=== PATIENT | female | born 1955 | race Caucasian/White ===

== ENCOUNTER → 2018-01-19 12:17 | Outpatient (CLI) | payer OTHER, SELFPAY ==
[2018-01-19 13:17] LABS: Appearance Urine UA CLEAR; Bilirubin Urine UA NEGATIVE (NEGATIVE); Color Urine UA YELLOW; Glucose Urine UA NEGATIVE (Normal); Ketones Urine UA NEGATIVE (NEGATIVE); Leukocyte Esterase Urine UA NEGATIVE (NEGATIVE); Nitrite Urine UA Negative (Negative); Occult Blood Urine UA 2+ (Negative); Protein Urine UA NEGATIVE (Negative); Specific Gravity Urine UA <=1.005 (1.000-1.035); Urobilinogen Urine UA 0.2 E.U./dL (0.2)
[2018-01-19 13:37] LABS: WBC Urine 0-1/HPF (0-5/HPF)
[2018-01-19 13:41] LABS: Bacteria Urine Few (2-10); Culture Indicated Urine Cult Not Indicated; RBC Urine None Seen (0-5/HPF)
== END ==
PROVIDERS: Family Provider Family Medicine; PCP Family Medicine; Visit Provider Internal Medicine
DX: R30.0 Dysuria (principal)
CPT/HCPCS: 81003; 81015

== ENCOUNTER → 2018-04-07 11:52 | Outpatient (CLI) | payer OTHER, SELFPAY ==
--- NOTE | 2018-04-07 11:53 | DI.MG.S_ITS ---
BILATERAL DIGITAL SCREENING MAMMOGRAM 3D/2D WITH CAD: 04/07/2018 CLINICAL: Routine screening. Family history of breast cancer. Comparison is made to exams dated: 12/09/2016 mammogram, 12/09/2015 mammogram, and 11/28/2014 mammogram - [facility]. The tissue of both breasts is heterogeneously dense. This may lower the sensitivity of mammography. Current study was also evaluated with a Computer Aided Detection (CAD) system. No significant masses, calcifications, or other findings are seen in either breast. There has been no significant interval change. IMPRESSION: NEGATIVE There is no mammographic evidence of malignancy. A 1 year screening mammogram is recommended. This exam was interpreted at Station ID: [id number]. NOTE: For mammograms, a report in lay terms will be sent to the patient. Approximately 15% of breast malignancies will not be visualized mammographically. In the management of a palpable breast mass, a negative mammogram must not discourage biopsy of a clinically suspicious lesion. Electronically Signed By: Vale verde/sebastian:04/07/2018 13:41:00 copy to: Kamilah Parnell letter sent: Normal Exam ACR BI-RADS Category 1: Negative 3341F
== END ==
PROVIDERS: Family Provider Family Medicine; PCP Family Medicine; Visit Provider Internal Medicine
DX: Z12.31 Encounter for screening mammogram for malignant neoplasm of breast (principal); Z80.3 Family history of malignant neoplasm of breast
CPT/HCPCS: 77063; 77067

== ENCOUNTER 2018-06-01 12:43 | Day surgery (SDC) | payer OTHER, SELFPAY ==
[2018-06-01 13:30] VITALS: BMI 23.0
[2018-06-01 13:37] VITALS: BP 126/89; PULSE 86; RESP 16; TEMP 36.7; O2SAT 99
[2018-06-01] MEDS: SODIUM CHLORIDE 0.9% 1,000 ML 21 ML IV (13:50)
--- NOTE | 2018-06-01 14:35 | PM.HP.1 ---
History of Present Illness Date Patient Seen: 06/01/18 Time Patient Seen: 14:35 Chief complaint: colonoscopy [id number] Narrative: 63-year-old female who presents for colorectal screening. Her last colonoscopy was 10 years ago, which she reported as normal at that time. She has had no new recent gastrointestinal symptoms. Denies nausea, vomiting, abdominal pain, loss of appetite, unexplained weight loss, change in bowel habits, diarrhea, constipation, melena, hematochezia, or bright red blood per rectum. Patient History Medical History History of hysterectomy (Acute) Hyperlipidemia (Chronic 2013) Hypothyroidism (Chronic 2013) Surgical History History of section (Acute) History of colonoscopy (Acute) History of hemorrhoidectomy (Acute) History of myomectomy (Acute) History of tonsillectomy (Acute) History of abdominoplasty (Resolved) History of section (Resolved) Family & Social History Family History: Reviewed 06/01/18 by Martín Vasquez MD Social History: household members spouse Tobacco & Substance use: Smoking Status Never smoker Meds Home Medications Medication Instructions Recorded Confirmed Type levothyroxine 100 mcg tablet 100 mcg PO QAM #90 tab 11/23/17 06/01/18 Rx atorvastatin 40 mg tablet 40 mg PO HS #90 tab 12/06/17 06/01/18 Rx CMP testosterone See Label Instructions .ROUTE 01/24/18 06/01/18 Rx .COMPLEX #30 gram cholecalciferol (vitamin D3) 5,000 unit PO DAILY 06/01/18 06/01/18 History [Vitamin D3] coenzyme Q10 [CoQ-10] 60 mg PO DAILY 06/01/18 06/01/18 History estradiol [Yuvafem] 10 mcg VAGINAL 2XW 06/01/18 06/01/18 History multivitamin 1 cap PO QAM 06/01/18 06/01/18 History spironolactone 50 mg PO BID 06/01/18 06/01/18 History turmeric 3,000 mg PO DAILY 06/01/18 06/01/18 History Allergies Allergy/AdvReac Type Severity Reaction Status Date / Time codeine [CODEINE] Allergy Severe SEVERE Verified 06/01/18 13:22 NAUSEA morphine [MORPHINE] Allergy Severe NAUSEA/VOMI Verified 06/01/18 13:22 TING oxycodone [OXYCODONE] Allergy Severe NAUSEA Verified 06/01/18 13:22 Review of Systems Review of Systems All systems reviewed & are unremarkable except as noted in HPI and below Exam Vital Signs (past 8 hours): - 06/01/18 13:37 Temperature 98.1 F Pulse Rate 86 Respiratory Rate 16 Blood Pressure 126/89 Pulse Oximetry 99 Oxygen Delivery Method Room Air Narrative Exam Narrative: Well-nourished well-developed female lying comfortably in bed in no acute distress. Alert oriented x3. Her accompanies her at the bedside throughout my entire visit Sclera nonicteric Regular rate and rhythm Abdomen soft, nondistended, nontender Extremities show no clubbing, cyanosis, or edema Objective Labs Labs: No recent laboratory or radiographic studies review Assessment & Plan Plan: Assessment/Plan Narrative: 63-year-old female requiring colorectal screening since it has been 10 years from her last examination. Colonoscopy is currently recommended. Technical details of the procedure were discussed. Risks, benefits, alternatives were explained. Risks including but not limited to sedation, aspiration, bleeding, pain, missed lesion, incomplete examination, need for further radiographic studies, colonic perforation, need for major abdominal surgery, and all attendant risks of major surgery were explained in detail. Questions were answered to her satisfaction, and she voiced understanding. Consent was placed on the chart. We will proceed as above.
--- NOTE | 2018-06-01 14:39 | PM.PREOP ---
Pre-operative Note Interval Note Pre-op Check: Yes History & Physical Reviewed by Physician, Yes Exam Performed and Yes History & Physical exam performed today by Physician Changes: No H&P completed within 30 days and has changed as indicated here:: Patient seen and examined today. History and physical examination documented and placed on the chart. Proceed with colonoscopy today as planned. ASA Class (for procedural sedation): II
[2018-06-01] MEDS: ONDANSETRON 4 MG/2 ML INJ IV (14:47)
[2018-06-01] MEDS: diphenhydrAMINE 50 MG/ML VIAL IV (15:00)
[2018-06-01] MEDS: MIDAZOLAM 5 MG/5 ML VIAL IV (15:09)
[2018-06-01] MEDS: fentaNYL 250 MCG/5 ML INJ IV (15:11)
--- NOTE | 2018-06-01 15:13 | PM.OP.ENDO ---
Operative Date/Time/Diagnoses Date of procedure: 06/01/18 Time of procedure: 15:13 Pre-op diagnosis: Colorectal screening Post-op diagnosis: other (Normal colon and rectum) Procedure & Clinicians Study performed: 1. Sedation per surgeon 2. Colonoscopy Same procedure as scheduled: Yes Indications: 63-year-old female who presents for colorectal screening. Her last examination was 10 years ago. Colonoscopy is once again recommended. Surgeon: Martín Vasquez Procedure Notes SCOAP/Timeout: Yes Procedure in detail: After obtaining informed consent, the patient was brought to the GI suite and placed in the left lateral decubitus position on the examination table. After placement of appropriate monitors, the patient was given incremental doses of Versed and Fentanyl until an appropriate level of sedation was achieved. A time out was held per SCOAP protocol. A digital rectal examination was performed and did not reveal any masses or obstructing lesions. The colonoscope was gently passed into the patient's anus and the entire colon navigated to the level of the cecum with some difficulty. In fact, the adult colonoscope was inadequate to navigate the tortuous left colon so pediatric colonoscope was used for the exam. Terminal ileum was intubated and noted to be grossly normal. Once in the cecum, the scope was withdrawn being sure to go before and beyond all mucosal folds and prominences and get an excellent examination. The findings are noted above. At the level of the rectal vault, the scope was retroflexed and the internal anal canal was examined. The scope was straightened and air aspirated from the colon. The instrument was removed from the patient's body and the procedure was concluded. The patient was allowed to awaken from sedation without difficulty and taken to the post-anesthesia care unit in good condition. Scope withdrawal time: 8:02 min Sedation minutes: 27 Findings: other findings (Normal colon and rectum) Specimen(s): none sent Complications: none Recommendations: Colonscopy in 10 years and High fiber diet Plan for aftercare: 1. Discharge home Follow up: as needed Disposition: PACU
[2018-06-01 15:24] VITALS: BP 134/92; PULSE 91; RESP 14; TEMP 37.2; O2SAT 98
[2018-06-01 15:31] VITALS: BP 137/85; PULSE 84; RESP 15; O2SAT 98
[2018-06-01 15:36] VITALS: BP 113/82; PULSE 94; RESP 15; O2SAT 98
[2018-06-01 15:42] VITALS: BP 118/75; PULSE 73; RESP 15; TEMP 37.2; O2SAT 98
== END 2018-06-01 16:18 | disposition home or self-care (01) ==
PROVIDERS: PCP Obstetrics & Gynecology; Visit Provider Surgery
PROC: 0DJD8ZZ Inspection of Lower Intestinal Tract, Via Natural or Artificial Opening Endoscopic (ICD-10-PCS; CPT 45378; principal; 2018-06-01 14:45)
DX: Z12.11 Encounter for screening for malignant neoplasm of colon (principal)
CPT/HCPCS: 45378; 99152; 99153; J1200; J2250; J2405; J3010

== ENCOUNTER → 2018-07-04 13:21 | Outpatient (CLI) | payer OTHER, SELFPAY ==
[2018-07-06 15:41] LABS: Estradiol < 15 pg/mL; Progesterone < 0.5 ng/mL
[2018-07-07 15:16] LABS: Dehydroepiandrosterone Sulfate 57 mcg/dL (12-133)
[2018-07-07 17:41] LABS: Testosterone Free 1.7 pg/mL (0.1-6.4); Testosterone Total 14 ng/dL (2-45)
== END ==
PROVIDERS: PCP Obstetrics & Gynecology; Visit Provider Obstetrics & Gynecology
DX: N95.1 Menopausal and female climacteric states (principal)
CPT/HCPCS: 36415; 82627; 82670; 84144; 84402; 84403

== ENCOUNTER → 2019-03-02 11:43 | Outpatient (CLI) | payer OTHER, SELFPAY ==
[2019-03-02 12:09] LABS: Hematocrit 40.9 % (36-46); Hemoglobin 14.3 g/dL (12.0-16.0); Mean Corpuscular Hemoglobin 35.8 PG (26-34); Mean Corpuscular Volume 102.5 fL (80-100); Platelet Count 146 X10^3/uL (150-400); Red Blood Cell Count 3.99 X10^6/uL (4.0-5.2); Red Cell Distribution Width 13.7 % (11.6-14.8); White Blood Cell Count 3.6 X10^3/uL (4.5-11.0)
[2019-03-02 12:24] LABS: Alanine Aminotransferase 53 IU/L (9-52); Albumin 4.5 g/dL (3.5-5.0); Albumin Globulin Ratio 1.5 (1.0-2.8); Alkaline Phosphatase 70 U/L (38-126); Aspartate Aminotransferase 63 IU/L (14-36); Bilirubin Total 1.2 mg/dL (0.2-1.3); Blood Urea Nitrogen 10 mg/dL (7-17); Calcium 9.4 mg/dL (8.4-10.2); Carbon Dioxide 28 mmol/L (22-32); Chloride 97 mmol/L (98-107); Cholesterol 227 mg/dL (140-199); Estimated Glomerular Filt Rate > 60.0 mL/min (>60); Globulin 3.1 g/dL (1.7-4.1); Glucose 104 mg/dL (80-110); HDL Cholesterol 83 mg/dL (40-60); HEMOLYSIS < 15 (0-50); LDL Cholesterol Calculated 106 mg/dL (<100); Potassium 4.6 mmol/L (3.4-5.1); Sodium 135 mmol/L (137-145); Total Protein 7.6 g/dL (6.3-8.2); Triglycerides 189 mg/dL (35-150)
[2019-03-02 12:27] LABS: Neutrophils Absolute Manual 2520 /uL (3000-5900); Total Cells Counted 100
[2019-03-02 12:29] LABS: Macrocytosis 1+
[2019-03-02 17:54] LABS: Free T4, Direct Thyroxine 1.07 ng/dL (0.78-2.19)
== END ==
PROVIDERS: PCP Nurse Practitioner; Visit Provider Nurse Practitioner
DX: E78.5 Hyperlipidemia, unspecified (principal); D69.6 Thrombocytopenia, unspecified; E03.9 Hypothyroidism, unspecified
CPT/HCPCS: 36415; 80053; 80061; 84439; 84443; 85025

== ENCOUNTER → 2019-04-18 16:02 | Outpatient (CLI) | payer OTHER, SELFPAY ==
--- NOTE | 2019-04-18 | DI.MG.S_ITS ---
BILATERAL DIGITAL SCREENING MAMMOGRAM 3D/2D WITH CAD: 04/18/2019 CLINICAL: Routine screening. Comparison is made to exams dated: 04/07/2018 mammogram, 12/09/2016 mammogram, 12/09/2015 mammogram, and 11/28/2014 mammogram - [facility]. The tissue of both breasts is heterogeneously dense. This may lower the sensitivity of mammography. Current study was also evaluated with a Computer Aided Detection (CAD) system. No significant masses, calcifications, or other findings are seen in either breast. There has been no significant interval change. IMPRESSION: NEGATIVE There is no mammographic evidence of malignancy. A 1 year screening mammogram is recommended. This exam was interpreted at Station ID: [id number]. NOTE: For mammograms, a report in lay terms will be sent to the patient. Approximately 15% of breast malignancies will not be visualized mammographically. In the management of a palpable breast mass, a negative mammogram must not discourage biopsy of a clinically suspicious lesion. Electronically Signed By: Dc herrera/sebastian:04/18/2019 18:16:34 copy to: Kamilah Parnell letter sent: Normal Exam ACR BI-RADS Category 1: Negative 3341F
== END ==
PROVIDERS: PCP Nurse Practitioner; Visit Provider Obstetrics & Gynecology
DX: Z12.31 Encounter for screening mammogram for malignant neoplasm of breast (principal)
CPT/HCPCS: 77063; 77067

== ENCOUNTER → 2019-07-16 07:20 | Outpatient (CLI) | payer OTHER, SELFPAY ==
[2019-07-16 09:17] LABS: Alanine Aminotransferase 20 IU/L (<35); Albumin 4.4 g/dL (3.5-5.0); Albumin Globulin Ratio 1.6 (1.0-2.8); Alkaline Phosphatase 81 U/L (38-126); Aspartate Aminotransferase 32 IU/L (14-36); Bilirubin Unconjugated 0.8 mg/dL (0.0-1.1); Globulin 2.7 g/dL (1.7-4.1); HEMOLYSIS < 15 (0-50); Total Protein 7.1 g/dL (6.3-8.2)
[2019-07-16 09:50] LABS: Thyroid Stimulating Hormone 0.52 uIU/mL (0.47-4.68)
[2019-07-16 15:51] LABS: Hep C Virus Ab w/Reflex Quant NEGATIVE s/c (NEGATIVE)
== END ==
PROVIDERS: PCP Nurse Practitioner; Visit Provider Nurse Practitioner
DX: R74.8 Abnormal levels of other serum enzymes (principal); Z11.59 Encounter for screening for other viral diseases; E03.9 Hypothyroidism, unspecified; E78.5 Hyperlipidemia, unspecified; I10 Essential (primary) hypertension
CPT/HCPCS: 36415; 80076; 84443; 86803

== ENCOUNTER → 2020-04-19 14:16 | Outpatient (CLI) | payer MEDICARE, SELFPAY ==
--- NOTE | 2020-04-19 | DI.MG.S_ITS ---
BILATERAL DIGITAL SCREENING MAMMOGRAM 3D/2D WITH CAD: 04/19/2020 CLINICAL: Routine screening. Family history of breast cancer. Comparison is made to exams dated: 04/18/2019 mammogram, 04/07/2018 mammogram, and 12/09/2016 mammogram - [facility]. There are scattered fibroglandular elements in both breasts. Current study was also evaluated with a Computer Aided Detection (CAD) system. No significant masses, calcifications, or other findings are seen in either breast. There has been no significant interval change. IMPRESSION: NEGATIVE There is no mammographic evidence of malignancy. A 1 year screening mammogram is recommended. This exam was interpreted at Station ID: [id number]. NOTE: For mammograms, a report in lay terms will be sent to the patient. Approximately 15% of breast malignancies will not be visualized mammographically. In the management of a palpable breast mass, a negative mammogram must not discourage biopsy of a clinically suspicious lesion. Electronically Signed By: Abdon jones/sebastian:04/21/2020 09:50:01 copy to: Kamilah Parnell letter sent: Normal Exam ACR BI-RADS Category 1: Negative 3341F
== END ==
PROVIDERS: PCP Nurse Practitioner; Referring Provider Obstetrics & Gynecology; Visit Provider Obstetrics & Gynecology
DX: Z12.31 Encounter for screening mammogram for malignant neoplasm of breast (principal); Z80.3 Family history of malignant neoplasm of breast
CPT/HCPCS: 77063; 77067

== ENCOUNTER → 2020-11-06 08:45 | Outpatient (CLI) | payer MEDICARE, SELFPAY ==
[2020-11-06 09:25] LABS: Alanine Aminotransferase 21 IU/L (<35); Albumin 4.4 g/dL (3.5-5.0); Albumin Globulin Ratio 1.5 (1.0-2.8); Alkaline Phosphatase 85 U/L (38-126); Aspartate Aminotransferase 39 IU/L (14-36); Bilirubin Total 1.5 mg/dL (0.2-1.3); Blood Urea Nitrogen 14 mg/dL (7-17); Calcium 9.8 mg/dL (8.4-10.2); Carbon Dioxide 27 mmol/L (22-32); Chloride 101 mmol/L (98-107); Cholesterol 222 mg/dL (140-199); Estimated Glomerular Filt Rate > 60.0 mL/min (>60); Glucose 101 mg/dL (80-110); HDL Cholesterol 89 mg/dL (40-60); HEMOLYSIS < 15 (0-50); LDL Cholesterol Calculated 97 mg/dL (<100); Potassium 4.1 mmol/L (3.4-5.1); Sodium 136 mmol/L (137-145); Total Protein 7.4 g/dL (6.3-8.2); Triglycerides 178 mg/dL (35-150)
[2020-11-06 10:24] LABS: Creatinine Urine Random 109.1 mg/dL
[2020-11-06 10:28] LABS: Microalbumi Creatinin Ratio Ur 12.8 ug/mg CR (<30); Microalbumin Urine Random 1.4 mg/dL (0-1.6)
[2020-11-06 10:38] LABS: Thyroid Stimulating Hormone 3.85 uIU/mL (0.47-4.68)
[2020-11-06 10:39] LABS: Free T4, Direct Thyroxine 0.99 ng/dL (0.78-2.19)
== END ==
PROVIDERS: Nurse Practitioner; PCP Internal Medicine; Referring Provider Obstetrics & Gynecology; Visit Provider Obstetrics & Gynecology
DX: E03.9 Hypothyroidism, unspecified (principal); I10 Essential (primary) hypertension; E78.5 Hyperlipidemia, unspecified
CPT/HCPCS: 36415; 80053; 80061; 82043; 82570; 84439; 84443

== ENCOUNTER → 2020-11-16 09:42 | Outpatient (CLI) | payer MEDICARE, SELFPAY ==
--- NOTE | 2020-11-16 09:45 | DI.RAD.S_ITS ---
PROCEDURE: XR CHEST 2V INDICATIONS: L sided rib pain s/p fall TECHNIQUE: 2 views of the chest were acquired. COMPARISON: None. FINDINGS: Surgical changes and devices: None. Lungs and pleura: Lungs are clear. No pleural effusions or pneumothorax. Mediastinum: Mediastinal contours are normal. Heart size is normal. Bones and chest wall: No suspicious bony abnormalities. No displaced rib fractures within limits of this examination. Mild degenerative changes of the acromioclavicular joints and thoracic spine. Soft tissues appear unremarkable. IMPRESSION: No evidence of an acute cardiopulmonary or osseous abnormality. Dictated by: Lucian Gonzalez D.O. on 11/16/2020 at 8:59 Approved by: Lucian Gonzalez D.O. on 11/16/2020 at 9:02
== END ==
PROVIDERS: PCP Internal Medicine; Referring Provider Physician Assistant; Visit Provider Physician Assistant
DX: R07.81 Pleurodynia (principal)
CPT/HCPCS: 71046

== ENCOUNTER → 2021-03-06 10:40 | Outpatient (CLI) | payer OTHER, SELFPAY ==
[2021-03-06 12:40] LABS: Hep C Virus Ab w/Reflex Quant NEGATIVE s/c (NEGATIVE)
[2021-03-06 12:41] LABS: HIV 1 & 2 Ab/Ag 4th Gen Combo NEGATIVE (NEGATIVE)
== END ==
PROVIDERS: PCP Internal Medicine; Referring Provider Internal Medicine; Visit Provider Internal Medicine
DX: Z00.00 Encounter for general adult medical examination without abnormal findings (principal); Z11.59 Encounter for screening for other viral diseases
CPT/HCPCS: 36415; 86803; 87389

== ENCOUNTER → 2021-03-09 11:09 | Outpatient (CLI) | payer MEDICARE, SELFPAY | PROVIDERS: PCP Internal Medicine; Referring Provider Internal Medicine; Visit Provider Internal Medicine | DX: M85.852 Other specified disorders of bone density and structure, left thigh (principal); Z78.0 Asymptomatic menopausal state; E07.9 Disorder of thyroid, unspecified | CPT/HCPCS: 77080 ==

== ENCOUNTER → 2021-04-20 15:53 | Outpatient (CLI) | payer OTHER, SELFPAY ==
--- NOTE | 2021-04-20 | DI.MG.S_ITS ---
BILATERAL DIGITAL SCREENING MAMMOGRAM 3D/2D WITH CAD: 04/20/2021 CLINICAL: Routine screening. Family history of breast cancer. Comparison is made to exams dated: 04/19/2020 mammogram, 04/18/2019 mammogram, and 04/07/2018 mammogram - [facility]. There are scattered fibroglandular elements in both breasts. Current study was also evaluated with a Computer Aided Detection (CAD) system. No significant masses, calcifications, or other findings are seen in either breast. There has been no significant interval change. IMPRESSION: NEGATIVE There is no mammographic evidence of malignancy. A 1 year screening mammogram is recommended. This exam was interpreted at Station ID: [id number]. NOTE: For mammograms, a report in lay terms will be sent to the patient. Approximately 15% of breast malignancies will not be visualized mammographically. In the management of a palpable breast mass, a negative mammogram must not discourage biopsy of a clinically suspicious lesion. Electronically Signed By: Abdon jones/sebastian:04/21/2021 07:56:26 copy to: Kamilah Parnell letter sent: Normal Exam ACR BI-RADS Category 1: Negative 3341F
== END ==
PROVIDERS: PCP Internal Medicine; Referring Provider Obstetrics & Gynecology; Visit Provider Internal Medicine
DX: Z12.31 Encounter for screening mammogram for malignant neoplasm of breast (principal); Z80.3 Family history of malignant neoplasm of breast
CPT/HCPCS: 77063; 77067

== ENCOUNTER → 2022-07-09 11:49 | Outpatient (CLI) | payer OTHER, SELFPAY ==
--- NOTE | 2022-07-09 11:51 | DI.MG.S_ITS ---
BILATERAL DIGITAL SCREENING MAMMOGRAM 3D/2D WITH CAD: 07/09/2022 CLINICAL: Routine screening. Family history of breast cancer. Comparison is made to exams dated: 04/20/2021 mammogram, 04/19/2020 mammogram, and 04/18/2019 mammogram - [facility]. Both breasts are heterogeneously dense, which may obscure small masses (category c / 51-75% glandular tissue). Current study was also evaluated with a Computer Aided Detection (CAD) system. No significant masses, calcifications, or other findings are seen in either breast. There has been no significant interval change. IMPRESSION: NEGATIVE There is no mammographic evidence of malignancy. A 1 year screening mammogram is recommended. This exam was interpreted at Station ID: [id number]. NOTE: For mammograms, a report in lay terms will be sent to the patient. Approximately 15% of breast malignancies will not be visualized mammographically. In the management of a palpable breast mass, a negative mammogram must not discourage biopsy of a clinically suspicious lesion. Electronically Signed By: Vale verde/sebastian:07/09/2022 12:34:30 copy to: Kamilah Parnell letter sent: Normal Exam ACR BI-RADS Category 1: Negative 3341F
== END ==
PROVIDERS: PCP Internal Medicine; Referring Provider Internal Medicine; Visit Provider Internal Medicine
DX: Z12.31 Encounter for screening mammogram for malignant neoplasm of breast (principal); Z80.3 Family history of malignant neoplasm of breast
CPT/HCPCS: 77063; 77067

== ENCOUNTER → 2022-12-10 13:05 | Outpatient (CLI) | payer MEDICARE, SELFPAY ==
[2022-12-10 14:12] LABS: Influenza A - CEPHEID Flu A POSITIVE (NEGATIVE); Influenza B - CEPHEID Flu B NEGATIVE (NEGATIVE); Respiratory Syncytial Virus Negative (Negative)
[2022-12-10 15:53] LABS: COVID-19 CEPHEID 4-PLEX PCR Negative (Negative)
== END ==
PROVIDERS: PCP Internal Medicine; Visit Provider Nurse Practitioner Family
DX: J06.9 Acute upper respiratory infection, unspecified (principal); Z20.822 Contact with and (suspected) exposure to COVID-19
CPT/HCPCS: 0241U

== ENCOUNTER → 2023-08-26 10:59 | Outpatient (CLI) | payer OTHER, SELFPAY ==
--- NOTE | 2023-08-26 11:00 | DI.MG.S_ITS ---
BILATERAL DIGITAL SCREENING MAMMOGRAM 3D/2D WITH CAD: 08/26/2023 CLINICAL: Routine screening. Family history of breast cancer. Comparison is made to exams dated: 07/09/2022 mammogram, 04/20/2021 mammogram, and 04/19/2020 mammogram - [facility]. Both breasts are heterogeneously dense, which may obscure small masses (category c / 51-75% glandular tissue). Current study was also evaluated with a Computer Aided Detection (CAD) system. No significant masses, calcifications, or other findings are seen in either breast. There has been no significant interval change. IMPRESSION: NEGATIVE There is no mammographic evidence of malignancy. A 1 year screening mammogram is recommended. Based on the Tyrer Cuzick model (a risk assessment model) the patient's lifetime risk is 18.5% and her 10 year risk is 10.6%. According to the ACR, ACS, and NCCN guidelines, an annual breast MRI exam along with mammogram is recommended if the patient's lifetime risk is 20% or greater. This exam was interpreted at Station ID: [id number]. NOTE: For mammograms, a report in lay terms will be sent to the patient. Approximately 15% of breast malignancies will not be visualized mammographically. In the management of a palpable breast mass, a negative mammogram must not discourage biopsy of a clinically suspicious lesion. Electronically Signed By: Vale verde/sebastian:08/30/2023 16:33:52 copy to: Kamilah Parnell letter sent: Normal Exam ACR BI-RADS Category 1: Negative 3341F
== END ==
LOC: MAMMO 10:59
PROVIDERS: PCP Internal Medicine; Referring Provider Internal Medicine; Visit Provider Internal Medicine
DX: Z12.31 Encounter for screening mammogram for malignant neoplasm of breast (principal); R92.333 Mammographic heterogeneous density, bilateral breasts
CPT/HCPCS: 77063; 77067

== ENCOUNTER → 2024-12-31 15:21 | Outpatient (CLI) | payer MEDICARE, SELFPAY ==
--- NOTE | 2024-12-31 15:22 | DI.MG.S_ITS ---
MM screening mammo BI: 12/31/2024. BI-RADS: 1 CLINICAL: 69-year old female for bilateral screening mammogram. Tyrer-Cuzick lifetime risk of 10.7%. No personal or first-degree family history of breast cancer. PRIOR EXAMS: 08/26/2023, 07/09/2022, 04/20/2021, 04/19/2020, 04/18/2019, 04/07/2018. MAMMOGRAPHY TECHNIQUE: 2D and 3D (tomosynthesis) digital mammographic views obtained, with additional images as needed for full coverage. Current study was also evaluated with a Computer Aided Detection (CAD) system. DENSITY C. The breasts are heterogeneously dense, which may obscure small masses. MAMMOGRAPHY FINDINGS Bilateral: No suspicious mass, asymmetry, microcalcification, or other abnormality seen. IMPRESSION: * No evidence of malignancy. RECOMMENDATIONS Bilateral * Annual screening mammography. OVERALL ASSESSMENT CATEGORY BI-RADS-1: Negative. The [employer] recommends annual screening mammography beginning at age 40 for women with average risk of breast cancer. ELECTRONICALLY SIGNED: Mac Sunshine M.D. on 01/01/2025 at 08:37:59 AM PT Interpreting Station ID: [id number]
== END ==
PROVIDERS: PCP Nurse Practitioner Family; Referring Provider Nurse Practitioner Family; Visit Provider Nurse Practitioner Family
DX: Z12.31 Encounter for screening mammogram for malignant neoplasm of breast (principal); R92.333 Mammographic heterogeneous density, bilateral breasts
CPT/HCPCS: 77063; 77067

== ENCOUNTER → 2025-02-22 14:30 | Outpatient (CLI) | payer MEDICARE, SELFPAY | PROVIDERS: PCP Nurse Practitioner Family; Referring Provider Obstetrics & Gynecology; Visit Provider Obstetrics & Gynecology | DX: R14.0 Abdominal distension (gaseous) (principal) | CPT/HCPCS: 36415; 86304 ==

== ENCOUNTER → 2025-03-29 09:48 | Outpatient (CLI) | payer MEDICARE, SELFPAY ==
--- NOTE | 2025-03-29 09:50 | DI.RAD.S_ITS ---
PROCEDURE: XR DEXA AXIAL SKELETON INDICATIONS: asymptomatic age-lated postmenopausal state COMPARISON: [facility], , XR DEXA AXIAL SKELETON, 03/09/2021, 11:29. FINDINGS: Lumbar Spine: Bone mineral density 1.208 (previously 1.474) g/cm2, T score 1.5 (previously 2.3). Left Femoral Neck: Bone mineral density 0.642 (previously 0.856) g/cm2, T score -1.9 (previously -1.3). Left Hip: Bone mineral density 0.944 (previously1.002) g/cm2, T score 0.0 (previously 0.0). Fracture Risk Calculation (when applicable): 10-year fracture risk of a major osteoporotic fracture 11 percent and of a hip fracture 2.0 percent. (T score greater or equal to -1.0 to: NORMAL) (T score from -1.1 to -2.4: OSTEOPENIA) (T score less than or equal to -2.5: OSTEOPOROSIS) IMPRESSION: Osteopenia--- recommend repeat DEXA in 2-3 years for reassessment. Follow-up guidelines as follows: Osteoporosis: Consider a repeat DEXA and Vertebral Fracture Assessment (VFA) exam in 2 years or sooner if medically necessary, to reassess this patient's status. Osteopenia: Consider a repeat DEXA in 2-3 years to reassess this patient's status, or if there is a new clinical indication. Normal: Consider a repeat DEXA in 5 years or sooner, or if there is a new clinical indication. All treatment decisions require clinical judgment and consideration of individual patient factors, including patient preferences, comorbidities, previous drug use, risk factors not captured in the FRAX model (e.g., frailty, falls, vitamin D deficiency, increased bone turnover, interval significant decline in bone density ) and possible under- or over-estimation of fracture risk by FRAX. In addition, the NOF Guide recommends that FDA-approved medical therapies be considered in postmenopausal women and men age >= 50 years with a: * Hip or vertebral (clinical or morphometric) fracture * T-score of <=-2.5 at the spine or hip * Ten-year fracture probability by FRAX of >= 3% for hip fracture or >=20% for major osteoporotic fracture. Dictated by: Montana Manzo M.D. on 03/31/2025 at 21:46 Approved by: Montana Manzo M.D. on 03/31/2025 at 21:48
== END ==
LOC: RAD 09:49
PROVIDERS: PCP Nurse Practitioner Family; Referring Provider Nurse Practitioner Family; Visit Provider Nurse Practitioner Family
DX: M85.852 Other specified disorders of bone density and structure, left thigh (principal); Z78.0 Asymptomatic menopausal state
CPT/HCPCS: 77080